=== PATIENT | male | born 1945 | race Caucasian/White ===

== ENCOUNTER 2021-01-13 10:53 | Inpatient (IN) | payer MEDICARE ==
[~2021-01-13] VITALS: Ht 195.6 cm; Wt 190.5 kg
[2021-01-13] MEDS ORDERED: ALBUTEROL/IPRATROPIUM 3 ML NEB NEB ONE (11:15)
[2021-01-13] MEDS ORDERED: FUROSEMIDE INJ 10 MG/ML 4 ML VIAL ONE (11:17)
[2021-01-13 11:25] LABS: BASOPHILS % 0.2 % (0.0-1.0); EOSINOPHILS % 0.1 % (0.0-6.0); HEMATOCRIT 45.5 % (38.2-49.6); HEMOGLOBIN 13.3 g/dL (14.0-18.0); LYMPHOCYTES # (AUTO) 1.1 (1.0-3.2); LYMPHOCYTES % 11.8 % (18.0-39.1); MEAN CORPUSCULAR HEMOGLOBIN 30.3 pg (28-32); MEAN CORPUSCULAR HGB CONC 29.2 g/dL (31-35); MEAN CORPUSCULAR VOLUME 103.6 fL (81-99); MONOCYTES # (AUTO) 0.6 (0.2-0.8); MONOCYTES % 6.3 % (4.4-11.3); NEUTROPHILS # (AUTO) 7.6 (2.1-6.9); NEUTROPHILS % 81.2 % (38.7-80.0); PLATELET COUNT 190 x10e3/uL (140-360); RED BLOOD COUNT 4.39 x10e6/uL (4.3-5.7); RED CELL DISTRIBUTION WIDTH 13.2 % (11.7-14.4)
[2021-01-13] MEDS ORDERED: FUROSEMIDE INJ 10 MG/ML 4 ML VIAL IV ONE (12:15)
[2021-01-13 12:17] LABS: ALBUMIN 3.6 g/dL (3.5-5.0); ALBUMIN/GLOBULIN RATIO 1.2 (0.8-2.0); CALCIUM 9.1 mg/dL (8.4-10.2); CREATININE, SERUM 1.34 mg/dL (0.72-1.25)
[2021-01-13 12:22] LABS: B-TYPE NATRIURETIC PEPTIDE2 425.9 pg/mL (0-100)
[2021-01-13] MEDS ORDERED: ETOMIDATE 2 MG/ML 10 ML INJ IV ONE (12:59)
[2021-01-13] MEDS ORDERED: SUCCINYLCHOLINE CHLORIDE 20 MG/ML 10ML VIAL ONE (12:59)
[2021-01-13 14:21] VITALS: BP_SYST 128; BP_SYST 130; BP_DIAS 101; BP_DIAS 57
[2021-01-13 16:04] VITALS: BP 130/101
[2021-01-13] MEDS ORDERED: FUROSEMIDE10 MG/1 M1 PO (18:44)
[2021-01-13] MEDS ORDERED: CARVEDILOL12.5 MG PO (18:44)
[2021-01-13] MEDS ORDERED: ELIQUIS5 MG PO (18:44)
[2021-01-13] MEDS ORDERED: LISINOPRIL5 MG PO (18:44)
[2021-01-13] MEDS ORDERED: GLIPIZIDE5 MG PO (18:44)
[2021-01-13] MEDS ORDERED: ATORVASTATIN CA10 MG PO (18:44)
[2021-01-13] MEDS ORDERED: ONDANSETRON HCL INJ 2MG/ML 2ML 2 MG/ML VIAL IV PRN (19:15)
[2021-01-13] MEDS: CARVEDILOL 3.125 MG TAB PO SCH (19:15)
[2021-01-13] MEDS ORDERED: ACETAMINOPHEN 325 MG TAB PO PRN (19:15)
[2021-01-13] MEDS: APIXABAN 5 MG TABLET PO SCH (20:00)
[2021-01-13] MEDS: ATORVASTATIN 10 MG TAB PO SCH (20:00)
[2021-01-13 20:06] VITALS: BP 123/81
[2021-01-13 20:21] VITALS: BP 131/81
[2021-01-13] MEDS: INSULIN LISPRO 100 UNIT/1 ML 3ML VIAL SQ SCH (20:33)
[2021-01-14] VITALS (15 sets, daily range): BP systolic 110–176; BP diastolic 72–133
[2021-01-14 05:19] LABS: BASOPHILS % 0.1 % (0.0-1.0); EOSINOPHILS % 0.1 % (0.0-6.0); HEMATOCRIT 41.3 % (38.2-49.6); HEMOGLOBIN 12.2 g/dL (14.0-18.0); LYMPHOCYTES # (AUTO) 0.7 (1.0-3.2); MEAN CORPUSCULAR HEMOGLOBIN 30.6 pg (28-32); MEAN CORPUSCULAR HGB CONC 29.5 g/dL (31-35); MEAN CORPUSCULAR VOLUME 103.5 fL (81-99); MONOCYTES # (AUTO) 0.6 (0.2-0.8); MONOCYTES % 8.3 % (4.4-11.3); NEUTROPHILS # (AUTO) 5.8 (2.1-6.9); NEUTROPHILS % 81.1 % (38.7-80.0); PLATELET COUNT 135 x10e3/uL (140-360); RED BLOOD COUNT 3.99 x10e6/uL (4.3-5.7); RED CELL DISTRIBUTION WIDTH 12.8 % (11.7-14.4)
[2021-01-14 06:09] LABS: ANION GAP 12.4 mmol/L (8-16); CALCIUM 8.7 mg/dL (8.4-10.2); CREATININE, SERUM 1.11 mg/dL (0.72-1.25); POTASSIUM 4.4 mmol/L (3.5-5.1)
[2021-01-14] MEDS: INSULIN LISPRO 100 UNIT/1 ML 3ML VIAL SQ SCH ×4 (07:30→21:00)
[2021-01-14] MEDS: ASPIRIN 81 MG CHEW TAB PO SCH (08:56)
[2021-01-14] MEDS: CARVEDILOL 3.125 MG TAB PO SCH ×2 (08:57→17:39)
[2021-01-14] MEDS: APIXABAN 5 MG TABLET PO SCH ×2 (08:57→17:39)
[2021-01-14] MEDS ORDERED: FUROSEMIDE INJ 10 MG/ML 4 ML VIAL IV SCH (10:15)
[2021-01-14] MEDS ORDERED: ONDANSETRON HCL 4 MG ORAL DISINTEGRATING TAB PO PRN (10:15)
[2021-01-14 17:40] LABS: ABG PCO2 111 mmHg (35-45); ABG PH 7.24 (7.35-7.45)
[2021-01-14 17:41] LABS: ABG HCO3 47 mmol/L (22-26); ABG PO2 82 mmHg (80-105); ABG TCO2 50
[2021-01-14 17:42] LABS: ABG PH 7.29 (7.35-7.45)
[2021-01-14 17:43] LABS: ABG HCO3 47 mmol/L (22-26); ABG PCO2 98 mmHg (35-45); ABG PO2 121 mmHg (80-105); ABG TCO2 50
[2021-01-14] MEDS ORDERED: ACETAZOLAMIDE SODIUM 500 MG/VIAL IV NR (19:00)
[2021-01-14 19:55] LABS: ABG PH 7.33 (7.35-7.45)
[2021-01-14 19:56] LABS: ABG PCO2 95 mmHg (35-45)
[2021-01-14 19:57] LABS: ABG HCO3 50 mmol/L (22-26); ABG PO2 101 mmHg (80-105); ABG TCO2 50
[2021-01-14] MEDS: METHYLPREDNISOLONE SOD SUCC 40 MG/ML VIAL 1ML IV SCH (21:10)
[2021-01-14] MEDS: ATORVASTATIN 10 MG TAB PO SCH (21:10)
[2021-01-14] MEDS: FUROSEMIDE INJ 10 MG/ML 4 ML VIAL IV SCH (21:10)
[2021-01-15] VITALS (26 sets, daily range): BP systolic 112–174; BP diastolic 75–120
[2021-01-15 06:20] LABS: BASOPHILS % 0.1 % (0.0-1.0); HEMATOCRIT 42.4 % (38.2-49.6); HEMOGLOBIN 12.5 g/dL (14.0-18.0); LYMPHOCYTES # (AUTO) 0.6 (1.0-3.2); MEAN CORPUSCULAR HEMOGLOBIN 30.6 pg (28-32); MEAN CORPUSCULAR HGB CONC 29.5 g/dL (31-35); MEAN CORPUSCULAR VOLUME 103.9 fL (81-99); MONOCYTES # (AUTO) 0.3 (0.2-0.8); MONOCYTES % 4.8 % (4.4-11.3); PLATELET COUNT 133 x10e3/uL (140-360); RED BLOOD COUNT 4.08 x10e6/uL (4.3-5.7); RED CELL DISTRIBUTION WIDTH 12.7 % (11.7-14.4)
[2021-01-15 06:40] LABS: ANION GAP 13.1 mmol/L (8-16); CALCIUM 8.6 mg/dL (8.4-10.2); CREATININE, SERUM 0.98 mg/dL (0.72-1.25); POTASSIUM 4.1 mmol/L (3.5-5.1)
[2021-01-15] MEDS: INSULIN LISPRO 100 UNIT/1 ML 3ML VIAL SQ SCH ×4 (07:30→21:04)
[2021-01-15] MEDS: FUROSEMIDE INJ 10 MG/ML 4 ML VIAL IV SCH ×2 (08:11→20:56)
[2021-01-15] MEDS: ASPIRIN 81 MG CHEW TAB PO SCH (08:14)
[2021-01-15] MEDS: METHYLPREDNISOLONE SOD SUCC 40 MG/ML VIAL 1ML IV SCH ×2 (08:14→21:00)
[2021-01-15] MEDS: CARVEDILOL 3.125 MG TAB PO SCH ×2 (08:15→17:51)
[2021-01-15] MEDS: APIXABAN 5 MG TABLET PO SCH ×2 (08:15→17:51)
[2021-01-15 09:24] LABS: ABG PH 7.37 (7.35-7.45)
[2021-01-15 09:26] LABS: ABG HCO3 52 mmol/L (22-26); ABG PCO2 89 mmHg (35-45); ABG PO2 89 mmHg (80-105); ABG TCO2 > 50
[2021-01-15 09:46] LABS: FREE THYROXINE INDEX 1.8658 (1.4-3.8); THYROID STIMULATING HORMONE 0.46 uIU/mL (0.350-4.940)
[2021-01-15] MEDS: LISINOPRIL 2.5 MG TAB PO SCH (10:05)
[2021-01-15] MEDS: ACETAZOLAMIDE 250 MG TAB PO SCH (10:05)
[2021-01-15] MEDS ORDERED: HYDRALAZINE HCL 20 MG/ML VIAL IV PRN (17:30)
[2021-01-15] MEDS: ATORVASTATIN 10 MG TAB PO SCH (20:57)
[2021-01-15] MEDS ORDERED: ATORVASTATIN 10 MG TAB PO SCH (21:00)
[2021-01-15] MEDS: SALMETEROL/FLUTICASONE 250/50 INH SCH (21:25)
[2021-01-16] VITALS (23 sets, daily range): BP systolic 112–168; BP diastolic 62–127
[2021-01-16 06:40] LABS: ANION GAP 12.3 mmol/L (8-16); CALCIUM 9.4 mg/dL (8.4-10.2); CREATININE, SERUM 1.01 mg/dL (0.72-1.25); POTASSIUM 4.3 mmol/L (3.5-5.1)
[2021-01-16] MEDS: INSULIN LISPRO 100 UNIT/1 ML 3ML VIAL SQ SCH ×4 (07:55→21:53)
[2021-01-16] MEDS: SALMETEROL/FLUTICASONE 250/50 INH SCH ×2 (08:10→19:03)
[2021-01-16] MEDS: METHYLPREDNISOLONE SOD SUCC 40 MG/ML VIAL 1ML IV SCH ×2 (09:26→21:52)
[2021-01-16] MEDS: FUROSEMIDE INJ 10 MG/ML 4 ML VIAL IV SCH ×2 (09:26→21:52)
[2021-01-16] MEDS: ASPIRIN 81 MG CHEW TAB PO SCH (09:26)
[2021-01-16] MEDS: ACETAZOLAMIDE 250 MG TAB PO SCH (09:27)
[2021-01-16] MEDS: CARVEDILOL 3.125 MG TAB PO SCH ×2 (09:27→17:06)
[2021-01-16] MEDS: APIXABAN 5 MG TABLET PO SCH ×2 (09:27→17:06)
[2021-01-16] MEDS: LISINOPRIL 2.5 MG TAB PO SCH (09:28)
[2021-01-16] MEDS ORDERED: FUROSEMIDE40 MG PO (11:00)
[2021-01-16] MEDS ORDERED: LASIX20 MG PO (11:00)
[2021-01-16] MEDS ORDERED: ALBUTEROL SULF 0.083% NEB SOLN 3 ML NEB NEB ONE (15:00)
[2021-01-16 15:39] LABS: ABG PH 7.41 (7.35-7.45)
[2021-01-16 15:40] LABS: ABG PO2 79 mmHg (80-105)
[2021-01-16 15:41] LABS: ABG HCO3 53 mmol/L (22-26); ABG PCO2 84 mmHg (35-45); ABG TCO2 > 50
[2021-01-16] MEDS ORDERED: CARVEDILOL 3.125 MG TAB PO ONE (19:45)
[2021-01-16] MEDS: ATORVASTATIN 10 MG TAB PO SCH (21:52)
[2021-01-17] VITALS (13 sets, daily range): BP systolic 93–164; BP diastolic 52–124
[2021-01-17 04:59] LABS: BASOPHILS % 0.1 % (0.0-1.0); HEMATOCRIT 47.1 % (38.2-49.6); HEMOGLOBIN 14.4 g/dL (14.0-18.0); LYMPHOCYTES # (AUTO) 0.6 (1.0-3.2); LYMPHOCYTES % 7.3 % (18.0-39.1); MEAN CORPUSCULAR HEMOGLOBIN 30.3 pg (28-32); MEAN CORPUSCULAR HGB CONC 30.6 g/dL (31-35); MEAN CORPUSCULAR VOLUME 99.2 fL (81-99); MONOCYTES # (AUTO) 0.3 (0.2-0.8); MONOCYTES % 3.3 % (4.4-11.3); NEUTROPHILS # (AUTO) 7.6 (2.1-6.9); NEUTROPHILS % 89.1 % (38.7-80.0); PLATELET COUNT 139 x10e3/uL (140-360); RED BLOOD COUNT 4.75 x10e6/uL (4.3-5.7); RED CELL DISTRIBUTION WIDTH 12.7 % (11.7-14.4)
[2021-01-17 05:28] LABS: ANION GAP 15.2 mmol/L (8-16); CALCIUM 9.1 mg/dL (8.4-10.2); CREATININE, SERUM 1.1 mg/dL (0.72-1.25); POTASSIUM 4.2 mmol/L (3.5-5.1)
[2021-01-17] MEDS: SALMETEROL/FLUTICASONE 250/50 INH SCH ×2 (08:00→18:55)
[2021-01-17] MEDS: INSULIN LISPRO 100 UNIT/1 ML 3ML VIAL SQ SCH ×4 (08:03→20:52)
[2021-01-17] MEDS: ASPIRIN 81 MG CHEW TAB PO SCH (08:40)
[2021-01-17] MEDS: FUROSEMIDE INJ 10 MG/ML 4 ML VIAL IV SCH (08:40)
[2021-01-17] MEDS: APIXABAN 5 MG TABLET PO SCH ×2 (08:40→16:44)
[2021-01-17] MEDS: ACETAZOLAMIDE 250 MG TAB PO SCH (08:40)
[2021-01-17] MEDS: LISINOPRIL 2.5 MG TAB PO SCH (08:46)
[2021-01-17] MEDS: CARVEDILOL 3.125 MG TAB PO SCH ×2 (08:47→16:44)
[2021-01-17] MEDS ORDERED: ALBUMIN 25% 25GM 100ML 0.25 GM/ML BTL IV ONE (12:00)
[2021-01-17] MEDS ORDERED: ALBUMIN 25% 25GM 100ML 200 ML IV ONE (12:30)
[2021-01-17] MEDS: ATORVASTATIN 10 MG TAB PO SCH (20:52)
[2021-01-18] VITALS: BP 114/90
[2021-01-18 04:00] VITALS: BP 127/83
[2021-01-18 06:49] LABS: ANION GAP 13.5 mmol/L (8-16); CALCIUM 9.1 mg/dL (8.4-10.2); CREATININE, SERUM 1.11 mg/dL (0.72-1.25); POTASSIUM 3.5 mmol/L (3.5-5.1)
[2021-01-18] MEDS ORDERED: METHYLPREDNISOLONE SOD SUCC 40 MG/ML VIAL 1ML IV SCH (07:30)
[2021-01-18 08:00] VITALS: BP 127/83
[2021-01-18 08:25] VITALS: BP 156/77
[2021-01-18] MEDS: SALMETEROL/FLUTICASONE 250/50 INH SCH (08:38)
[2021-01-18] MEDS: ASPIRIN 81 MG CHEW TAB PO SCH (09:33)
[2021-01-18] MEDS: CARVEDILOL 3.125 MG TAB PO SCH (09:34)
[2021-01-18] MEDS: APIXABAN 5 MG TABLET PO SCH (09:34)
[2021-01-18] MEDS: LISINOPRIL 2.5 MG TAB PO SCH (09:35)
[2021-01-18] MEDS: INSULIN LISPRO 100 UNIT/1 ML 3ML VIAL SQ SCH ×2 (09:39→11:56)
[2021-01-18] MEDS ORDERED: ACETAZOLAMIDE 250 MG TAB PO NR (10:30)
[2021-01-18] MEDS ORDERED: MEMANTINE 10 MG TAB PO SCH (10:45)
[2021-01-18 12:06] VITALS: BP 140/110
[2021-01-18] MEDS ORDERED: LASIX20 MG PO (12:26)
[2021-01-19] MEDS ORDERED: PREDNISONE 10 MG TAB PO SCH (09:00)
== END 2021-01-18 15:41 | disposition home or self-care (01) | DRG 291 ==
LOC: ER 11:00 → ERHOLD 13:00 → MED/SURG2 14:29 → ICU 01-14 16:20 → MED/SURG2 01-17 15:00
PROVIDERS: ADMIT Internal Medicine; ATTEND Internal Medicine
PROC: 02HV33Z Insertion of Infusion Device into Superior Vena Cava, Percutaneous Approach (ICD-10-PCS; principal; 2021-01-14)
PROC: 5A09357 Assistance with Respiratory Ventilation, Less than 24 Consecutive Hours, Continuous Positive Airway Pressure (ICD-10-PCS; 2021-01-15)
DX: I13.0 Hypertensive heart and chronic kidney disease with heart failure and stage 1 through stage 4 chronic kidney disease, or unspecified chronic kidney disease (principal); I50.23 Acute on chronic systolic (congestive) heart failure; J96.22 Acute and chronic respiratory failure with hypercapnia; Z68.42 Body mass index [BMI] 45.0-49.9, adult; E11.9 Type 2 diabetes mellitus without complications; I48.91 Unspecified atrial fibrillation; E66.9 Obesity, unspecified; N18.30 Chronic kidney disease, stage 3 unspecified; Z90.5 Acquired absence of kidney; Z83.3 Family history of diabetes mellitus; Z79.84 Long term (current) use of oral hypoglycemic drugs; Z20.822 Contact with and (suspected) exposure to COVID-19
CPT/HCPCS: 36415; 36569; 36600; 51700; 71045; 80048; 80053; 82805; 82948; 83605; 83735; 83880; 84436; 84443; 84479; 84484; 85025; 87040; 93005; 94060; 94640; 94660; 94664; 94799; 97139; 99284; J0330; J1940; J2920; U0002